=== PATIENT | female | born 1975 ===

== ENCOUNTER 2017-09-20 11:27 | Emergency (ER) | payer MEDICAID ==
[2017-09-20 11:36] VITALS: BP 113/73; PULSE 67; RESP 21; TEMP 99.3; O2SAT 100
--- NOTE | 2017-09-20 12:10 | ED PDOC ---
HPI: CCC, URI, Sore Throat Time Seen by Provider: 09/20/17 12:02 Chief Complaint (Nursing): ENT Problem Chief Complaint (Provider): Ear pain, sore throat x 4 days History Per: Patient History/Exam Limitations: no limitations Onset/Duration Of Symptoms: Days Current Symptoms Are (Timing): Still Present Location Of Pain: Ear(s), Throat Sick Contacts (Context): None Associated Symptoms: Sore Throat, Myalgias, Nasal Congestion. denies: Fever, Chills, Cough, Sputum Additional Complaint(s): Pt states she does not have a thermometer. Past Medical History Reviewed: Historical Data, Nursing Documentation, Vital Signs Vital Signs: Last Vital Signs Temp 99.3 F 09/20/17 11:35 Pulse 67 09/20/17 11:35 Resp 21 09/20/17 11:35 BP 113/73 09/20/17 11:35 Pulse Ox 100 09/20/17 11:35 - Medical History PMH: No Chronic Diseases - Surgical History Surgical History: No Surg Hx - Family History Family History: States: No Known Family Hx - Home Medications Home Medications: Ambulatory Orders Medication Instructions Recorded Azithromycin [Zithromax] 250 mg PO DAILY #6 tab 09/20/17 Guaifen/Phenyleph/Acetaminophn 1 tab PO BID #14 tab 09/20/17 [Mucinex Fast-Max Cold & Sinus 325 mg-200 mg-5] - Allergies Allergies/Adverse Reactions: Allergies Allergy/AdvReac Type Severity Reaction Status Date / Time Penicillins Allergy RASH Verified 09/20/17 11:49 Review of Systems ROS Statement: Except As Marked, All Systems Reviewed And Found Negative Constitutional: Positive for: Sweats. Negative for: Fever, Chills ENT: Positive for: Ear Pain, Throat Pain Cardiovascular: Negative for: Chest Pain, Palpitations Respiratory: Negative for: Cough, Shortness of Breath Physical Exam - Reviewed Nursing Documentation Reviewed: Yes Vital Signs Reviewed: Yes - Physical Exam Appears: Positive for: Well, Non-toxic, No Acute Distress Head Exam: Positive for: ATRAUMATIC, NORMAL INSPECTION, NORMOCEPHALIC Skin: Positive for: Normal Color, Warm, DRY Eye Exam: Positive for: Normal appearance ENT: Positive for: Normal ENT Inspection, Pharynx Is, TM Is/Are Neck: Positive for: Normal, Painless ROM Cardiovascular/Chest: Positive for: Regular Rate, Rhythm Respiratory: Positive for: CNT, Normal Breath Sounds Back: Positive for: Normal Inspection Extremity: Positive for: Normal ROM Neurologic/Psych: Positive for: Alert, Oriented - ECG O2 Sat by Pulse Oximetry: 100 Disposition - Clinical Impression Clinical Impression: URI (upper respiratory infection) - Patient ED Disposition Is Patient to be Admitted: No Counseled Patient/Family Regarding: Diagnosis, Need For Followup, Rx Given - Disposition Disposition: Routine/Home Disposition Time: 12:08 Condition: STABLE Prescriptions: Azithromycin [Zithromax] 250 mg PO DAILY #6 tab Guaifen/Phenyleph/Acetaminophn [Mucinex Fast-Max Cold & Sinus 325 mg-200 mg-5] 1 tab PO BID #14 tab Instructions: Bacterial Upper Respiratory Infection, Adult Forms: [facility] ([place])
== END 2017-09-20 12:17 | disposition home or self-care (01) ==
LOC: H.ER 11:27
DX: J06.9 Acute upper respiratory infection, unspecified (principal); Z88.0 Allergy status to penicillin

== ENCOUNTER 2017-12-18 05:36 | Inpatient (IN) | payer MEDICAID ==
--- NOTE | 2017-12-18 06:36 | ED PDOC ---
HPI: Psych/Substance Abuse Time Seen by Provider: 12/18/17 05:45 Chief Complaint (Nursing): Psychiatric Evaluation History Per: Patient History/Exam Limitations: no limitations Onset/Duration Of Symptoms: Hrs Current Symptoms Are (Timing): Still Present Modifying Factor(s): None Additional Complaint(s): Hx of schizophrenia on rispderal presenting with auditory hallucinations. States that she was staying in a fpc and was hearing voices, thought that it was related to the stress of the fpc, states that she then left the fpc and [place] the [place]. States that she still heard the voices even in the park. States they are non-persecutory and sometimes she states the voices tell her to pray. Denies suicidal or homicidal ideation. No other complaints. Past Medical History Reviewed: Historical Data, Nursing Documentation, Vital Signs Vital Signs: Last Vital Signs Temp 98.2 F 12/18/17 06:14 Pulse 76 12/18/17 06:14 Resp 16 12/18/17 06:14 BP 120/71 12/18/17 06:14 Pulse Ox 99 12/18/17 06:14 - Medical History PMH: Depression - Surgical History Surgical History: Cholecystectomy - Family History Family History: States: Unknown Family Hx - Home Medications Home Medications: Ambulatory Orders Medication Instructions Recorded Azithromycin [Zithromax] 250 mg PO DAILY #6 tab 09/20/17 Guaifen/Phenyleph/Acetaminophn 1 tab PO BID #14 tab 09/20/17 [Mucinex Fast-Max Cold & Sinus 325 mg-200 mg-5] - Allergies Allergies/Adverse Reactions: Allergies Allergy/AdvReac Type Severity Reaction Status Date / Time Penicillins Allergy RASH Verified 09/20/17 11:49 Review of Systems ROS Statement: Except As Marked, All Systems Reviewed And Found Negative Psych: Positive for: Psychosis Physical Exam - Reviewed Nursing Documentation Reviewed: Yes Vital Signs Reviewed: Yes - Physical Exam Appears: Positive for: Well, Non-toxic, No Acute Distress Head Exam: Positive for: ATRAUMATIC, NORMAL INSPECTION, NORMOCEPHALIC Skin: Positive for: Normal Color, Warm, DRY Eye Exam: Positive for: EOMI, Normal appearance, PERRL ENT: Positive for: Normal ENT Inspection Neck: Positive for: Normal, Painless ROM Cardiovascular/Chest: Positive for: Regular Rate, Rhythm Respiratory: Positive for: CNT, Normal Breath Sounds Gastrointestinal/Abdominal: Positive for: Normal Exam, Soft Back: Positive for: Normal Inspection Extremity: Positive for: Normal ROM Neurologic/Psych: Positive for: Alert, branch credit counselor II-XII, Oriented, Mood/Affect (Strange affect). Negative for: Motor/Sensory Deficits - ECG O2 Sat by Pulse Oximetry: 99 Pulse Ox Interpretation: Normal Medical Decision Making Medical Decision MakinAM Hx of schizophrenia presenting with auditory hallucinations --Patient well appearing, calm, cooperative --Will get labs for med clearance --Will require crisis eval 700AM --Will endorse to Dr. Valdez pending crisis eval Disposition - Clinical Impression Clinical Impression: Schizophrenia - Patient ED Disposition Is Patient to be Admitted: Transfer of Care - Disposition Disposition: Transfer of Care Disposition Time: 07:00 Condition: STABLE Patient Signed Over To: Tabitha Valdez Handoff Comments: pending crisis eval
[2017-12-18 06:55] LABS: BASO # 0.1 K/uL (0.0-0.2); BASO % 0.9 % (0.0-2.0); EOS # 0.1 K/uL (0.0-0.7); EOS % 1.2 % (0.0-4.0); LYMPH # 1.8 K/uL (1.0-4.3); LYMPH % 19.3 % (20.0-40.0); MEAN CORPUSCULAR HGB CONC 32.5 g/dL (33.0-37.0); MEAN PLATELET VOLUME 7.2 fl (7.2-11.7); MONO # 0.6 K/uL (0.0-0.8); MONO % 6.3 % (0.0-10.0); NEUT # 6.9 K/uL (1.8-7.0); NEUT % 72.3 % (50.0-75.0); RBC 4.99 Mil/uL (3.80-5.20); RED CELL DISTRIBUTION WIDTH 15.3 % (11.5-14.5); WHITE BLOOD COUNT 9.5 K/uL (4.8-10.8)
[2017-12-18 07:03] LABS: BLOOD UREA NITROGEN 10 mg/dl (7-17); GFR NON-AFRICAN AMERICAN > 60
[2017-12-18 07:08] LABS: SQUAMOUS EPITHIAL 1 /hpf (0-5); URINE BACTERIA RARE (<OCC); URINE BILIRUBIN NEGATIVE (NEGATIVE); URINE BLOOD NEGATIVE (NEGATIVE); URINE CLARITY SLIGHTY-CLOUDY (Clear); URINE COLOR YELLOW (YELLOW); URINE GLUCOSE (UA) NEG (Normal); URINE LEUKOCYTE ESTERASE MOD Leu/uL (Negative); URINE PROTEIN NEGATIVE (NEGATIVE); URINE UROBILINOGEN 0.2-1.0 mg/dL (0.2-1.0)
[2017-12-18 07:09] LABS: ACETAMINOPHEN < 10.0 ug/ml (10.0-30.0); SALICYLATE < 1.0 mg/dl
[2017-12-18 07:10] LABS: BARBITURATES, UR NEGATIVE (NEGATIVE); BENZODIAZEPINES, UR NEGATIVE (NEGATIVE); OPIATES, UR NEGATIVE (NEGATIVE); PHENCYCLIDINE, UR NEGATIVE (NEGATIVE)
--- NOTE | 2017-12-18 07:23 | ED PDOC ---
- Laboratory Results Result Diagrams: 12/18/17 06:45 12/18/17 06:45 - ECG O2 Sat by Pulse Oximetry: 99 Medical Decision Making Medical Decision Makin:00 -Patient endorsed to provider by Dr. Almodovar, pending crisis evaluation. Patient is a known schizophrenic, hearing voices that are non threatening. Spoke with [employer]way worker who will get in contact with psychiatrist. -Labs are within normal limits. No medical attention needed. 11:53 am -Pt seen by psychiatrist and to be admitted to adult psychiatry under Dr. Porter. Disposition - Clinical Impression Clinical Impression: Schizophrenia - POA Present On Arrival: None - Disposition Disposition: Admitted as In-Patient Disposition Time: 11:53 Condition: STABLE
[2017-12-18] MEDS ORDERED: Magnesium Hydroxide Susp 30 ml UD PO PRN (14:32)
[2017-12-18] MEDS ORDERED: Alum-Mag Hydrox-Simethicone Susp (30 mL) PO PRN (14:32)
[2017-12-18] MEDS ORDERED: DiphenhydrAMINE 50 mg/ml Inj IM PRN (14:32)
--- NOTE | 2017-12-18 14:54 | PCM.PSYCH ---
Initial Psychiatric Evaluation - Initial Psychiatric Evaluation Type of Admission: Voluntary Legal Status: Capacity Chief Complaint (in patient's own words): i AM TIRED OF THE VOICES AND I DO NOT HAVE MEDICINE Patient's Reaction to Hospitalization: pt requested help History of Present Illness and Precipitating Events: pt is a 42 ys old female reported has been diagnosed with schizophrenia two years ago, since then had about five psychiatric hospitalizations, pt has often been non compliant with medications or follow up , p[[t related that to lack of insurance and financial difficulties, she stated she has been homeless and moving between different shelters, pt indicated that she has lost touch with her and her three children has been increasingly depressed for past few weeks due to her living situation and for past week she started experiencing auditory hallucinations at times they are the holy spirit telling her to be good and other times putting her down, pt has been feeling increasingly distressed because of the auditory hallucinations, started having passive suicidal ideation, came to ER seeking help collateral information CW received a call back from Mr. Elena stating that he hear message and he would like to know where his spouse had been, and where she is presently is at this time. As per Mr. Elena patient left him a few months ago and never returned. She was living with him and his mother. Current Medications: Active Medications Generic Name Dose Route Start Last Admin Trade Name Fordq PRN Reason Stop Dose Admin Acetaminophen 650 mg 12/18/17 14:32 Tylenol 325mg Tab PO Q4 PRN Pain, moderate (4-7) Al Hydrox/Mg Hydrox/Simethicone 30 ml 12/18/17 14:32 Maalox Plus 30 Ml PO Q4 PRN Dyspepsia Benztropine Mesylate 0.5 mg 12/18/17 22:00 Cogentin PO HS BEN Diphenhydramine HCl 50 mg 12/18/17 14:32 Benadryl IM Q6 PRN Extrapyramidal S/S Unable PO Diphenhydramine HCl 50 mg 12/18/17 14:32 Benadryl PO Q6 PRN Extrapyramidal Symptoms Haloperidol 5 mg 12/18/17 14:32 Haldol PO Q6 PRN Agitation Haloperidol Lactate 5 mg 12/18/17 14:32 Haldol IM Q6 PRN Agitation, Unable to Take PO Lorazepam 1 mg 12/18/17 14:32 Ativan PO TID PRN Anxiety/Agitation Magnesium Hydroxide 30 ml 12/18/17 14:32 Milk Of Magnesia PO HS PRN Constipation Risperidone 2 mg 12/18/17 22:00 Risperdal M-Tab PO HS BEN Sertraline HCl 25 mg 12/19/17 09:00 Zoloft PO DAILY BEN Trazodone HCl 50 mg 12/18/17 14:40 Desyrel PO HS PRN Insomnia Past Psychiatric History - Past Psychiatric History Explanation of prior treatment: about five inpatient hospitalizations past two years, history of non compliance History of Abuse: denied History of ETOH/Drug Use: denied History of Family Illness: denied Pertinent Medical Hx (Current Medical&Sleep Prob, Allergies): Allergies Allergy/AdvReac Type Severity Reaction Status Date / Time Penicillins Allergy RASH Verified 09/20/17 11:49 Risperidone [Risperdal] 2 mg PO HS 12/18/17 Sertraline [Zoloft] 50 mg PO DAILY 12/18/17 Mental Status Examination - Personal Presentation Personal Presentation: Looks older than stated age Additional comments: unkempt - Affect Affect: Constricted - Motor Activity Motor Activity: Psychomotor Retardation - Reliability in Providing Information Reliability in Providing Information: Poor, due to alteration in thoughts, Poor, due to altered mood - Speech Speech: Tangential - Mood Mood: Depressed, Anxious - Formal Thought Process Formal Thought Process: Circumstantial Additional comments: pt reported non command auditory hallucinations - Hallucinations/Delusions Hallucinations: Auditory - Obsessions/Compulsions Obsessions: No Compulsions: No - Cognitive Functions Orientation: Person, Place, Situation Sensorium: Alert Attention/Concentration: Easily distracted Abstract Thinking: [place] Judgement: Imparied, as evidence by: Poor judgement, Imparied, as evidence by: Lack of insight into illness - Risk Risk: Diminished functioning - Strength & Assets Inventory Strength & Assets Inventory: Life experience - Limitations Additional comments: poor compliance DSM 5 DX - DSM 5 DSM 5 Diagnosis: schizophrenia - Recommended/Plan of Treatment Treatment Recommendations and Plan of Treatment: pt will be started on zoloft 25mg, risperidone 2mg qhs and cogentin 0.5mg qhs trazodne 50mg qhs for insomnia social sevices will attempt to contact family CBT group and supportive therapy internal medicine consult disposition planning Prognosis: guarded
--- NOTE | 2017-12-18 15:54 | PCM.BM ---
Addendum entered and electronically signed by Елена Reyna MSW 12/27/17 16:12: Treatment Plan Review - Problem Schizophrenia Spectrum Time Initiated: 11:32 - Discharge / Continuing Care Discharge to:: Home, With Family Behavioral Health Services: Outpatient therapy (Patient reports significant improvement in sxs of depression since admission. Pt. denies current AH/VH although pt. appears internally preoccupied at times. Speech and thought process are more spontaneous than upon admission. Pt. remains socially withdrawn but is significantly more visible on 3NP and expressed enjoying being in the company of peers. Affect is brighter. No harmful behaviors noted. ) Original Note: <Trisha Harrell - Last Filed: 12/18/17 15:52> Treatment Plan Problems - Problems identified on initial assessmt HOPELESSNESS/HELPLESSNESS Date Initiated: 12/18/17 Assessment reference: NA Status: Active Treatment assets and liabiliti Patient Assests: adapts well, cooperative, self-reliant, ADL independent Patient Liabilities: live alone, financial problems, poor support system - Milieu Protocol Maintain good personal hygiene: daily Encourage regular showers, daily Remind patient to perform daily oral care, daily Assist patient to perform ADL's Conduct patient checks and document Observation sheet: Q15 minutes Maintain personal safety: every shift Educate patient to report safety concerns to staff, every shift Monitor environment for contraband/sharps Medication safety: Monitor for expected outcome, potential side effects: every shift, Assess barriers to learning: every shift, Assess readiness for medication education: every shift Milieu Narrative: pt will be started on zoloft 25mg, risperidone 2mg qhs and cogentin 0.5mg qhs trazodne 50mg qhs for insomnia social sevices will attempt to contact family CBT group and supportive therapy internal medicine consult disposition planning Discharge/Continuing Care - Treatment Team Participation Patient/Family/SO Statement: pt will be started on zoloft 25mg, risperidone 2mg qhs and cogentin 0.5mg qhs trazodne 50mg qhs for insomnia social sevices will attempt to contact family CBT group and supportive therapy internal medicine consult disposition planning <Елена Reyna - Last Filed: 12/20/17 15:33> Family Contact Family involvement: Patient does not wish Family/SO involvement Family contact name: Ramesh()([phone])/Ju(cousin)([phone]) Family contact comment: Patient hesitant to provide marketing underwriter with consent to contact family at this time. [employer] Launch Commander to meet with patient on 12/21 to attempt to obtain necessary consent to determain level of familys involvement and ways in which family can provide support through-out discharge planning and upon d/c. - Goals for Treatment Patient goals for treatment: Patient to continue stabilization on 3NP through medication management and group/supportive therapy to improve psychotic sxs (auditory hallucinations/ yarsani preoccupation) and alleviate sxs of depression. Patient to be encouraged to attend groups regularly to promote self- awareness, compliance, and improve insight, organization of thoughts, coping skills and self-esteem. Patient to be provided with referral for appropriate level of aftercare to reduce risk of future hospitalizations and ensure safety in the community. Discharge/Continuing Care - Education Needs Education Needs: Patient Medication, Patient Diagnosis/Disease Process, Patient Coping Skills, Patient Community resources, Patient Aftercare Safety Plan - Discharge Discharge Criteria: Tolerates medication w/o severe side effects, Normal sleep pattern, Reduction of target symptoms (AH/yarsani preoccupations/disorganization) Discharge to:: With Family (marketing underwriter to attempt to contact family and collect collateral regarding pts current living situation), Group Home - Treatment Team Participation Patient/Family/SO Statement: 12/20/17 15:38 Pt. was invited to attent tx team this morning to discuss progress on 3NP and tx goals. Pt. attended tx team with limited participation/engagement. Pt. presented as disorganized and internally preoccupied. Thoughts slightly impoverished. Speech: soft, underproductive and somewhat delayed. Pt. presents as a poor historian and requires moderate engagement to provide sufficient collateral regarding family relations/social hx. Pt. reported continued AH but with slight improvement since admission. Pt unable to elaborate. Pt. reported fair sleep. Pt. denies SI/HI and is able to contract for safety on 3NP. Patient made aware of staff availability. Patient expressed feeling safe on 3NP. Pt. reported wanting to contact children (currently in foster care) upon discharge to find out "how their education is going." 12/20/17 15:41 Discussed with Family/SO: No Was Patient/Family/SO present at Treatment Team Meeting: Yes <Kei Porter - Last Filed: 12/21/17 12:22> Treatment Plan Problems - Problems identified on initial assessmt HOPELESSNESS/HELPLESSNESS Date Initiated: 12/18/17 Assessment reference: NA Status: Active Problem 1 Date Initiated: 12/18/17 Assessment reference: NA Status: Active Schizophrenia Spectrum Date Initiated: 12/21/17 Time Initiated: 11:32 Assessment reference: NA Status: Active - Diagnosis (1) Depression Status: Acute Interventions: 12/21/17 12:22 psychotherapy, pharmacotherapy
--- NOTE | 2017-12-18 16:36 | CP.PCM.CON ---
History of Present Illness - History of Present Illness History of Present Illness: 42 yo female with no significant PMH aside from schizophrenia admitted to psyche unit because of depression. Review of Systems - Review of Systems All systems: reviewed and no additional remarkable complaints except (aside from those mentioned above, 12 point system review were negative by me) Past Patient History - Infectious Disease Hx of Infectious Diseases: None - Tetanus Immunizations Tetanus Immunization: Unknown - Past Medical History & Family History Past Medical History?: No Past Family History: Reviewed and not pertinent - Past Social History Smoking Status: Never Smoked Chewing Tobacco Use: No Cigar Use: No Alcohol: None Drugs: Denies - CARDIAC Hx Cardiac Disorders: No Hx Hypertension: No - PULMONARY Hx Respiratory Disorders: No Hx Tuberculosis: No - NEUROLOGICAL Hx Neurological Disorder: No HX Cerebrovascular Accident: No Hx Seizures: No - HEENT Hx HEENT Problems: No - RENAL Hx Chronic Kidney Disease: No - ENDOCRINE/METABOLIC Hx Endocrine Disorders: No - HEMATOLOGICAL/ONCOLOGICAL Hx Blood Disorders: No Hx Cancer: No Hx Human Immunodeficiency Virus (HIV): No - INTEGUMENTARY Hx Dermatological Problems: No - MUSCULOSKELETAL/RHEUMATOLOGICAL Hx Musculoskeletal Disorders: No - GASTROINTESTINAL Hx Gastrointestinal Disorders: No - GENITOURINARY/GYNECOLOGICAL Hx Genitourinary Disorders: No Hx Sexually Transmitted Disorders: No - PSYCHIATRIC Hx Depression: Yes Hx Physical Abuse: No Hx Sexual Abuse: No Hx Substance Use: No - SURGICAL HISTORY Hx Cholecystectomy: Yes - ANESTHESIA Hx Anesthesia: Yes Meds Allergies/Adverse Reactions: Allergies Allergy/AdvReac Type Severity Reaction Status Date / Time Penicillins Allergy RASH Verified 09/20/17 11:49 - Medications Medications: Current Medications Acetaminophen (Tylenol 325mg Tab) 650 mg PO Q4 PRN PRN Reason: Pain, moderate (4-7) Al Hydrox/Mg Hydrox/Simethicone (Maalox Plus 30 Ml) 30 ml PO Q4 PRN PRN Reason: Dyspepsia Benztropine Mesylate (Cogentin) 0.5 mg PO HS BEN Diphenhydramine HCl (Benadryl) 50 mg IM Q6 PRN PRN Reason: Extrapyramidal S/S Unable PO Diphenhydramine HCl (Benadryl) 50 mg PO Q6 PRN PRN Reason: Extrapyramidal Symptoms Haloperidol (Haldol) 5 mg PO Q6 PRN PRN Reason: Agitation Haloperidol Lactate (Haldol) 5 mg IM Q6 PRN PRN Reason: Agitation, Unable to Take PO Lorazepam (Ativan) 1 mg PO TID PRN PRN Reason: Anxiety/Agitation Magnesium Hydroxide (Milk Of Magnesia) 30 ml PO HS PRN PRN Reason: Constipation Risperidone (Risperdal M-Tab) 2 mg PO HS BEN Sertraline HCl (Zoloft) 25 mg PO DAILY BEN Trazodone HCl (Desyrel) 50 mg PO HS PRN PRN Reason: Insomnia Physical Exam - Constitutional Appears: No Acute Distress - Head Exam Head Exam: ATRAUMATIC - Eye Exam Eye Exam: absent: Scleral icterus - ENT Exam ENT Exam: Mucous Membranes Moist - Neck Exam Neck exam: Negative for: Meningismus - Respiratory Exam Respiratory Exam: absent: Rales, Rhonchi, Wheezes, Respiratory Distress - Cardiovascular Exam Cardiovascular Exam: REGULAR RHYTHM, +S1, +S2 - GI/Abdominal Exam GI & Abdominal Exam: Soft. absent: Tenderness - Rectal Exam Rectal Exam: Deferred - Extremities Exam Extremities exam: Negative for: calf tenderness, pedal edema - Back Exam Back exam: NORMAL INSPECTION - Neurological Exam Neurological exam: Alert, Oriented x3 - Psychiatric Exam Psychiatric exam: Normal Affect - Skin Skin Exam: Dry, Intact Results - Vital Signs Recent Vital Signs: Last Vital Signs Temp 97.0 F L 12/18/17 16:14 Pulse 71 12/18/17 16:14 Resp 18 12/18/17 16:14 BP 132/79 12/18/17 16:14 Pulse Ox 99 12/18/17 07:23 - Labs Result Diagrams: 12/18/17 06:45 12/18/17 06:45 Labs: Laboratory Results - last 24 hr 12/18/17 12/18/17 12/18/17 06:45 06:45 06:45 WBC 9.5 RBC 4.99 Hgb 13.0 Hct 39.9 MCV 80.0 L MCH 26.0 L MCHC 32.5 L RDW 15.3 H Plt Count 399 MPV 7.2 Neut % (Auto) 72.3 Lymph % (Auto) 19.3 L [place] % (Auto) 6.3 Eos % (Auto) 1.2 Baso % (Auto) 0.9 Neut # (Auto) 6.9 Lymph # (Auto) 1.8 [place] # (Auto) 0.6 Eos # (Auto) 0.1 Baso # (Auto) 0.1 Sodium 142 Potassium 4.2 Chloride 109 H Carbon Dioxide 23 Anion Gap 14 BUN 10 Creatinine 0.4 L Est GFR ( Amer) > 60 Est GFR (Non-Af Amer) > 60 Random Glucose 87 Calcium 9.0 Urine Color Urine Clarity Urine pH Ur Specific [place] Urine Protein Urine Glucose (UA) Urine Ketones Urine Blood Urine Nitrate Urine Bilirubin Urine Urobilinogen Ur Leukocyte Esterase Urine RBC (Auto) Urine Microscopic WBC Ur Squamous Epith Cells Urine Bacteria Salicylates < 1.0 Urine Opiates Screen Urine Methadone Screen Acetaminophen < 10.0 L Ur Barbiturates Screen Ur Phencyclidine Scrn Ur Amphetamines Screen U Benzodiazepines Scrn U Oth Cocaine Metabols U Cannabinoids Screen Alcohol, Quantitative < 10 12/18/17 12/18/17 06:45 06:45 WBC RBC Hgb Hct MCV MCH MCHC RDW Plt Count MPV Neut % (Auto) Lymph % (Auto) [place] % (Auto) Eos % (Auto) Baso % (Auto) Neut # (Auto) Lymph # (Auto) [place] # (Auto) Eos # (Auto) Baso # (Auto) Sodium Potassium Chloride Carbon Dioxide Anion Gap BUN Creatinine Est GFR ( Amer) Est GFR (Non-Af Amer) Random Glucose Calcium Urine Color Yellow Urine Clarity Slighty-cloudy Urine pH 6.0 Ur Specific [place] 1.019 Urine Protein Negative Urine Glucose (UA) Neg Urine Ketones Negative Urine Blood Negative Urine Nitrate Negative Urine Bilirubin Negative Urine Urobilinogen 0.2-1.0 Ur Leukocyte Esterase Mod Urine RBC (Auto) 2 Urine Microscopic WBC 1 Ur Squamous Epith Cells 1 Urine Bacteria Rare Salicylates Urine Opiates Screen Negative Urine Methadone Screen Negative Acetaminophen Ur Barbiturates Screen Negative Ur Phencyclidine Scrn Negative Ur Amphetamines Screen Negative U Benzodiazepines Scrn Negative U Oth Cocaine Metabols Negative U Cannabinoids Screen Negative Alcohol, Quantitative Assessment & Plan (1) Depression Status: Acute Comment: psyche is managing
[2017-12-18] MEDS: Risperidone M TAB 2 MG PO SCH (21:29)
[2017-12-19 09:03] LABS: T4 10.5 ug/dl (5.5-11.0)
--- NOTE | 2017-12-19 17:21 | PCM.PYCHPN ---
Psychiatric Progress Note - Psychiatric Progress Note Patient seen today, length of contact: pt evaluated discussed with team chart reviewed Patient Chief Complaint: I am sleeping better Problems Identified/Issues Discussed: pt evaluated, presenting with disorganized speech and thought process, guarded and evasive unable to explain why DYSEBASTIÁN took her children, having negative symptoms with poverty of thought content , paucity, religous preoccupation, continues to report non comand auditory hallucinations telling her to go to [facility] denied suicidal or homicidal ideation denied side effects of medications Medical Problems: about five inpatient hospitalizations past two years, history of non compliance DSM 5 Symptoms Update: schizophrenia disorganized type Medication Change: No Medical Record Reviewed: Yes Mental Status Examination - Cognitive Function Orientation: Person, Place, Situation Attention: Poor Concentration: Poor Association: Loose Fund of Knowledge: Poor Decription of patient's judgement and insights: poor insight and judgment - Mood Mood: Depressed, Anxious - Affect Affect: Constricted - Speech Speech: Soft, Pressured - Formal Thought Process Formal Thought Process: Hallucinations, Delusions, Paranoia, Loosening of associations, Circumstantial - Suicidal Ideation Suicidal Ideation: No - Homicidal Ideation Homicidal Ideation: No Goal/Treatment Plan - Goal/Treatment Plan Need for Continued Stay: Severe depression anxiety, Discharge may exacerbated symptoms, Failed transitioning, Severe functional impairment Progress Toward Problem(s) and Goals/Treatment Plan: zoloft 25mg, risperidone 2mg qhs and cogentin 0.5mg qhs trazodne 50mg qhs for insomnia social sevices will attempt to contact family CBT group and supportive therapy internal medicine consult disposition planning
[2017-12-19] MEDS: Risperidone M TAB 2 MG PO SCH (21:16)
--- NOTE | 2017-12-20 15:06 | PCM.PYCHPN ---
Psychiatric Progress Note - Psychiatric Progress Note Patient seen today, length of contact: pt evaluated discussed with team chart reviewed Patient Chief Complaint: the voices are less Problems Identified/Issues Discussed: pt evaluated with treatment team, continues to present with disorganized speech and thought process, reported partial decrease in the auditory hallucinations,, continues to be religiously preoccupied, denied suicidal or homicidal ideation Medical Problems: about five inpatient hospitalizations past two years, history of non compliance DSM 5 Symptoms Update: schizophrenia disorganized type Medication Change: No Medical Record Reviewed: Yes Mental Status Examination - Cognitive Function Orientation: Person, Place, Situation Attention: Poor Concentration: Poor Association: Loose Fund of Knowledge: Poor Decription of patient's judgement and insights: poor insight and judgment - Mood Mood: Depressed, Anxious - Affect Affect: Constricted - Speech Speech: Soft, Pressured - Formal Thought Process Formal Thought Process: Hallucinations, Delusions, Paranoia, Loosening of associations, Circumstantial - Suicidal Ideation Suicidal Ideation: No - Homicidal Ideation Homicidal Ideation: No Goal/Treatment Plan - Goal/Treatment Plan Need for Continued Stay: Severe depression anxiety, Discharge may exacerbated symptoms, Failed transitioning, Severe functional impairment Progress Toward Problem(s) and Goals/Treatment Plan: zoloft 25mg,increase risperidone 3mg qhs and cogentin 0.5mg qhs trazodne 50mg qhs for insomnia social sevices will attempt to contact family CBT group and supportive therapy internal medicine consult disposition planning
--- NOTE | 2017-12-21 11:32 | PCM.BM ---
Treatment Plan Problems - Problems identified on initial assessmt Problem 1 Date Initiated: 12/18/17 Assessment reference: NA Status: Active HOPELESSNESS/HELPLESSNESS Date Initiated: 12/18/17 Assessment reference: NA Status: Active Schizophrenia Spectrum Date Initiated: 12/21/17 Time Initiated: 11:32 Assessment reference: NA Status: Active Treatment assets and liabiliti Patient Assests: adapts well, cooperative, self-reliant, ADL independent Patient Liabilities: live alone, financial problems, poor support system - Milieu Protocol Maintain good personal hygiene: daily Encourage regular showers, daily Remind patient to perform daily oral care, daily Assist patient to perform ADL's Conduct patient checks and document Observation sheet: Q15 minutes Maintain personal safety: every shift Educate patient to report safety concerns to staff, every shift Monitor environment for contraband/sharps Medication safety: Monitor for expected outcome, potential side effects: every shift, Assess barriers to learning: every shift, Assess readiness for medication education: every shift Milieu Narrative: zoloft 25mg,increase risperidone 3mg qhs and cogentin 0.5mg qhs trazodne 50mg qhs for insomnia social sevices will attempt to contact family CBT group and supportive therapy internal medicine consult disposition planning Family Contact Family involvement: Patient does not wish Family/SO involvement Family contact name: Ramesh()([phone])/Ju(cousin)([phone]) Family contact comment: Patient hesitant to provide contract technical writer with consent to contact family at this time. Sales Operations Specialist to meet with patient on 12/21 to attempt to obtain necessary consent to determain level of familys involvement and ways in which family can provide support through-out discharge planning and upon d/c. - Goals for Treatment Patient goals for treatment: Patient to continue stabilization on 3NP through medication management and group/supportive therapy to improve psychotic sxs (auditory hallucinations/ gnosticist preoccupation) and alleviate sxs of depression. Patient to be encouraged to attend groups regularly to promote self- awareness, compliance, and improve insight, organization of thoughts, coping skills and self-esteem. Patient to be provided with referral for appropriate level of aftercare to reduce risk of future hospitalizations and ensure safety in the community. Discharge/Continuing Care - Education Needs Education Needs: Patient Medication, Patient Diagnosis/Disease Process, Patient Coping Skills, Patient Community resources, Patient Aftercare Safety Plan - Discharge Discharge Criteria: Tolerates medication w/o severe side effects, Normal sleep pattern, Reduction of target symptoms (AH/gnosticist preoccupations/disorganization) Discharge to:: With Family (contract technical writer to attempt to contact family and collect collateral regarding pts current living situation), [facility] - Treatment Team Participation Patient/Family/SO Statement: zoloft 25mg,increase risperidone 3mg qhs and cogentin 0.5mg qhs trazodne 50mg qhs for insomnia social sevices will attempt to contact family CBT group and supportive therapy internal medicine consult disposition planning Discussed with Family/SO: No Was Patient/Family/SO present at Treatment Team Meeting: Yes
--- NOTE | 2017-12-21 12:28 | PCM.PYCHPN ---
Psychiatric Progress Note - Psychiatric Progress Note Patient seen today, length of contact: pt evaluated discussed with team chart reviewed Patient Chief Complaint: I feel better with the medicine and the voices are less Problems Identified/Issues Discussed: pt evaluated , seen in day room, more interactive with staff and other peers, attending more to her personal hygiene, participating in groups, reported feeling less depressed, rated the auditory hallucinations 2/10, non command type, no reported side effects of medications, denied any current thoughts of self harm, improved sleep and appetite Medical Problems: about five inpatient hospitalizations past two years, history of non compliance DSM 5 Symptoms Update: schizophrenia undifferentiated type Medication Change: No Medical Record Reviewed: Yes Mental Status Examination - Cognitive Function Orientation: Person, Place, Situation Attention: WNL Concentration: Poor Association: WNL Fund of Knowledge: Poor Decription of patient's judgement and insights: poor insight and judgment - Mood Mood: Anxious - Affect Affect: Constricted - Speech Speech: Soft - Formal Thought Process Formal Thought Process: Hallucinations, Circumstantial - Suicidal Ideation Suicidal Ideation: No - Homicidal Ideation Homicidal Ideation: No Goal/Treatment Plan - Goal/Treatment Plan Need for Continued Stay: Severe depression anxiety, Discharge may exacerbated symptoms, Failed transitioning, Severe functional impairment Progress Toward Problem(s) and Goals/Treatment Plan: zoloft 25mg, risperidone 3mg qhs and cogentin 0.5mg qhs trazodne 50mg qhs for insomnia social sevices will attempt to contact family for collateral information and disposition CBT group and supportive therapy
--- NOTE | 2017-12-22 12:29 | PCM.PYCHPN ---
Psychiatric Progress Note - Psychiatric Progress Note Patient seen today, length of contact: pt evaluated discussed with team chart reviewed Patient Chief Complaint: I feel better I want to be with my family Problems Identified/Issues Discussed: pt evaluated , more kempt, speech more productive, thought process less disorganized , continues to have limited insight into illness seen in day room, more interactive with staff and other peers, participating in groups, reported feeling less depressed, rated the auditory hallucinations 2/10, non command type, no reported side effects of medications, denied any current thoughts of self harm, improved sleep and appetite Medical Problems: about five inpatient hospitalizations past two years, history of non compliance DSM 5 Symptoms Update: schizophrenia undifferentiated type Medication Change: No Medical Record Reviewed: Yes Mental Status Examination - Cognitive Function Orientation: Person, Place, Situation Attention: WNL Concentration: Poor Association: WNL Fund of Knowledge: Poor Decription of patient's judgement and insights: poor insight and judgment - Mood Mood: Anxious - Affect Affect: Constricted - Speech Speech: Soft - Formal Thought Process Formal Thought Process: Hallucinations, Circumstantial - Suicidal Ideation Suicidal Ideation: No - Homicidal Ideation Homicidal Ideation: No Goal/Treatment Plan - Goal/Treatment Plan Need for Continued Stay: Severe depression anxiety, Discharge may exacerbated symptoms, Failed transitioning, Severe functional impairment Progress Toward Problem(s) and Goals/Treatment Plan: zoloft 25mg, risperidone 3mg qhs and cogentin 0.5mg qhs trazodne 50mg qhs for insomnia social sevices will attempt to contact family for collateral information and disposition CBT group and supportive therapy Estimated Date of D/C: 12/26/17
[2017-12-23 10:54] VITALS: O2SAT 99
--- NOTE | 2017-12-23 17:29 | PCM.PYCHPN ---
Psychiatric Progress Note - Psychiatric Progress Note Patient seen today, length of contact: pt evaluated discussed with team chart reviewed Patient Chief Complaint: was feeling nervous anxious Problems Identified/Issues Discussed: alteration in mood alteration in cognition Medical Problems: per chart Diagnostic Results: per psychiatry per medicine per nursing per social work per recreational therapy DSM 5 Symptoms Update: alteration in mood alteration in cognition Medication Change: No Medical Record Reviewed: Yes Consults ordered or reviewed: pt seen by hospitalist Mental Status Examination - Cognitive Function Orientation: Person, Place, Situation Attention: WNL Concentration: Poor Association: WNL Fund of Knowledge: Poor Decription of patient's judgement and insights: impaired - Mood Mood: Anxious - Affect Affect: Constricted - Speech Speech: Soft - Formal Thought Process Formal Thought Process: Hallucinations, Circumstantial - Homicidal Ideation Homicidal Ideation: No Goal/Treatment Plan - Goal/Treatment Plan Need for Continued Stay: Severe depression anxiety, Discharge may exacerbated symptoms, Failed transitioning, Severe functional impairment Progress Toward Problem(s) and Goals/Treatment Plan: inpt milieu adjust meds per clinical status on going assessment discharge planning in progress Estimated Date of D/C: 12/26/17 - Smoking Cessation Smoking Cessation Initiated: No Reason for not providing: pt defers
--- NOTE | 2017-12-24 19:33 | PCM.PYCHPN ---
Psychiatric Progress Note - Psychiatric Progress Note Patient seen today, length of contact: pt evaluated discussed with team chart reviewed Patient Chief Complaint: pt reports sleeping and eating well. taking rx as prescribed no side effects. staff report pt rx adherent. Problems Identified/Issues Discussed: alteration in mood alteration in cognition Medical Problems: per chart Diagnostic Results: per psychiatry per medicine per nursing per social work per recreational therapy DSM 5 Symptoms Update: improving mood Medication Change: No Medical Record Reviewed: Yes Consults ordered or reviewed: pt seen by hospitalist Mental Status Examination - Cognitive Function Orientation: Person, Place, Situation, Time Attention: WNL Concentration: Poor Association: WNL Fund of Knowledge: Poor Decription of patient's judgement and insights: impaired - Mood Mood: Anxious - Affect Affect: Constricted - Speech Speech: Soft - Formal Thought Process Formal Thought Process: Hallucinations, Circumstantial - Suicidal Ideation Suicidal Ideation: No - Homicidal Ideation Homicidal Ideation: No Goal/Treatment Plan - Goal/Treatment Plan Need for Continued Stay: Severe depression anxiety, Discharge may exacerbated symptoms, Failed transitioning, Severe functional impairment Progress Toward Problem(s) and Goals/Treatment Plan: inpt milieu adjust meds per clinical status on going assessment discharge planning in progress Estimated Date of D/C: 12/26/17 - Smoking Cessation Smoking Cessation Initiated: No Reason for not providing: pt defers
--- NOTE | 2017-12-25 15:16 | PCM.PYCHPN ---
Psychiatric Progress Note - Psychiatric Progress Note Patient seen today, length of contact: pt evaluated discussed with team chart reviewed Patient Chief Complaint: I am less depressed and the voices are only whispering Problems Identified/Issues Discussed: pt evaluated , presenting with brighter affect, reported feeling less depressed, thought process less disorganized, reported clearing off of the auditory hallucinations , concrete thought process, no reported side effects of medications denied any current thoughts of self harm, improved sleep and appetite Medical Problems: about five inpatient hospitalizations past two years, history of non compliance DSM 5 Symptoms Update: schizophrenia Medication Change: No Medical Record Reviewed: Yes Mental Status Examination - Cognitive Function Orientation: Person, Place, Situation, Time Attention: WNL Concentration: WNL Association: WNL Fund of Knowledge: Poor Decription of patient's judgement and insights: partial insight poor judgment - Mood Mood: Anxious - Affect Affect: Constricted - Speech Speech: Soft - Formal Thought Process Formal Thought Process: Circumstantial - Suicidal Ideation Suicidal Ideation: No - Homicidal Ideation Homicidal Ideation: No Goal/Treatment Plan - Goal/Treatment Plan Need for Continued Stay: Severe depression anxiety, Discharge may exacerbated symptoms, Failed transitioning, Severe functional impairment Progress Toward Problem(s) and Goals/Treatment Plan: zoloft 25mg, risperidone 3mg qhs and cogentin 0.5mg qhs trazodne 50mg qhs for insomnia social sevices will attempt to contact family for collateral information and disposition CBT group and supportive therapy Estimated Date of D/C: 12/26/17
--- NOTE | 2017-12-26 15:02 | PCM.PYCHPN ---
Psychiatric Progress Note - Psychiatric Progress Note Patient seen today, length of contact: pt evaluated discussed with team chart reviewed Patient Chief Complaint: I want to stay with my Problems Identified/Issues Discussed: pt evaluated ,denied changes in sleep or appetite, presenting with brighter affect, reported feeling less depressed, thought process less disorganized, reported clearing off of the auditory hallucinations , concrete thought process, no reported side effects of medications , planning to stay with on discharge denied any current thoughts of self harm, Medical Problems: about five inpatient hospitalizations past two years, history of non compliance DSM 5 Symptoms Update: schizophrenia undifferentiated type Medication Change: No Medical Record Reviewed: Yes Mental Status Examination - Cognitive Function Orientation: Person, Place, Situation, Time Attention: WNL Concentration: WNL Association: WNL Fund of Knowledge: Poor Decription of patient's judgement and insights: partial insight poor judgment - Mood Mood: Anxious - Affect Affect: Constricted - Speech Speech: Soft - Formal Thought Process Formal Thought Process: Circumstantial - Suicidal Ideation Suicidal Ideation: No - Homicidal Ideation Homicidal Ideation: No Goal/Treatment Plan - Goal/Treatment Plan Need for Continued Stay: Severe depression anxiety, Discharge may exacerbated symptoms, Failed transitioning, Severe functional impairment Progress Toward Problem(s) and Goals/Treatment Plan: zoloft 25mg, risperidone 3mg qhs and cogentin 0.5mg qhs trazodne 50mg qhs for insomnia social sevices will attempt to contact family for collateral information and disposition CBT group and supportive therapy Estimated Date of D/C: 12/29/17
--- NOTE | 2017-12-27 14:41 | PCM.PYCHPN ---
Psychiatric Progress Note - Psychiatric Progress Note Patient seen today, length of contact: pt evaluated discussed with team chart reviewed Patient Chief Complaint: I feel good on current medicine Problems Identified/Issues Discussed: pt evaluated with treatment team ,reported better mood, speech more productive and thought process more goal directed ,no reported changes in sleep or appetite , reported clearing off of the auditory hallucinations , concrete thought process, no reported side effects of medications , planning to stay with on discharge ,denied any current thoughts of self harm, Medical Problems: about five inpatient hospitalizations past two years, history of non compliance DSM 5 Symptoms Update: schizophrenia Medication Change: No Medical Record Reviewed: Yes Mental Status Examination - Cognitive Function Orientation: Person, Place, Situation, Time Memory: Intact Attention: WNL Concentration: WNL Association: WNL Fund of Knowledge: Poor Decription of patient's judgement and insights: partial insight poor judgment - Mood Mood: Neutral - Affect Affect: Constricted - Speech Speech: Soft - Formal Thought Process Formal Thought Process: Circumstantial Psychotic Thoughts and Behaviors: pt denied any current psychotic symptoms, non elicited - Suicidal Ideation Suicidal Ideation: No - Homicidal Ideation Homicidal Ideation: No Goal/Treatment Plan - Goal/Treatment Plan Need for Continued Stay: Severe depression anxiety, Discharge may exacerbated symptoms, Failed transitioning, Severe functional impairment Progress Toward Problem(s) and Goals/Treatment Plan: zoloft 25mg, risperidone 3mg qhs and cogentin 0.5mg qhs trazodne 50mg qhs for insomnia CBT group and supportive therapy Estimated Date of D/C: 12/29/17
[2017-12-27] MEDS ORDERED: Influenza Vaccine (5 YR UP)/PF 60 MCG/0.5 ML SYR IM ONE (17:34)
[2017-12-28 09:10] VITALS: BP 116/67; PULSE 71; RESP 18; TEMP 98.1
--- NOTE | 2017-12-28 15:41 | PCM.PYCHDC ---
Mental Status Examination - Mental Status Examination Orientation: Person, Place Memory: Intact Mood: Neutral Affect: Broad Speech: Appropriate Attention: WNL Concentration: WNL Association: WNL Fund of Knowledge: WN Formal Thought Process: Circumstantial Description of patient's judgement and insight: partial insight poor judgment Psychotic Thoughts and Behaviors: pt denied any current psychotic symptoms, non elicited Suicidal Ideation: No Current Homicidal Ideation?: No Discharge Summary - Discharge Note Reason for Hospitalization: pt requested help pt is a 42 ys old female reported has been diagnosed with schizophrenia two years ago, since then had about five psychiatric hospitalizations, pt has often been non compliant with medications or follow up , p[[t related that to lack of insurance and financial difficulties, she stated she has been homeless and moving between different shelters, pt indicated that she has lost touch with her and her three children has been increasingly depressed for past few weeks due to her living situation and for past week she started experiencing auditory hallucinations at times they are the holy spirit telling her to be good and other times putting her down, pt has been feeling increasingly distressed because of the auditory hallucinations, started having passive suicidal ideation, came to ER seeking help collateral information CW received a call back from Mr. Elena stating that he hear CW message and he would like to know where his spouse had been, and where she is presently is at this time. As per Mr. Elena patient left him a few months ago and never returned. She was living with him and his mother. Consultations:: List each consultation separately and include: 1. Reason for request. 2. Findings. 3. Follow-up Summary of Hospital Course include:: 1. Description of specific treatment plan utilized for patients during their course of treatmen. 2. Summarize the time- course for resolution of acute symptoms and/or regressed behaviors. 3. Describe issues identified and worked on during hospitalization. 4. Describe medication utilized. 5. Describe medical problems identified and treated. 6. Reassessment of suicide risk Summary of Hospital Course: pt on admission was started on risperidone and zoloft , risperidone was increased to 3mg , pt was compliant with treatment denied any side effects pt attended groups, participated in treatment , marriage and family social worker contacted for after discharge plan CBT supportive and group therapy was provided on discharge mental status was stable, pt denied suicidal or homicidal ideation denied perceptual disturbances - Diagnosis (1) Depression Current Visit: Yes Status: Acute - Final Diagnosis (DSM 5) Condition upon Discharge: STABLE DSM 5: schizophrenia undifferentiated type Disposition: HOME/ ROUTINE Follow-up Treatment Plan: zoloft 25mg, risperidone 3mg qhs and cogentin 0.5mg qhs trazodne 50mg qhs for insomnia CBT group and supportive therapy Prescriptions/Medication Reconciliation: Benztropine [Cogentin] 0.5 mg PO HS 30 Days #30 tab risperiDONE [RisperDAL Tab] 3 mg PO HS 30 Days #30 tab Sertraline [Zoloft] 25 mg PO DAILY 30 Days #30 tab traZODone [Desyrel] 50 mg PO HS PRN 30 Days #30 tab PRN Reason: Insomnia - Antipsychotic Medications Pt discharged on 2 or more routine antipsychotic medications: No
== END 2017-12-28 16:45 | disposition home or self-care (01) | DRG 885 ==
LOC: H.ER 05:36 → H.ERHOLD 11:53 → H.PSYCH 13:59
PROVIDERS: ADMIT Psychiatry & Neurology Psychiatry; ATTEND Psychiatry & Neurology Psychiatry
PROC: GZHZZZZ Group Psychotherapy (ICD-10-PCS; principal; 2017-12-18)
PROC: GZ58ZZZ Individual Psychotherapy, Cognitive-Behavioral (ICD-10-PCS; 2017-12-18)
PROC: GZ56ZZZ Individual Psychotherapy, Supportive (ICD-10-PCS; 2017-12-18)
PROC: 3E02340 Introduction of Influenza Vaccine into Muscle, Percutaneous Approach (ICD-10-PCS; 2017-12-27)
DX: F20.3 Undifferentiated schizophrenia (principal); R45.851 Suicidal ideations; F32.9 Major depressive disorder, single episode, unspecified; G47.00 Insomnia, unspecified; Z91.14 Patient's other noncompliance with medication regimen; Z91.19 Patient's noncompliance with other medical treatment and regimen; Z88.0 Allergy status to penicillin; Z23 Encounter for immunization; Z59.0 Homelessness

== ENCOUNTER 2018-01-26 14:09 | Emergency (ER) | payer MEDICAID, OTHER ==
[2018-01-26 14:21] VITALS: BP 114/70; PULSE 81; RESP 18; TEMP 98.6; O2SAT 100
--- NOTE | 2018-01-26 14:35 | ED PDOC ---
HPI: CCC, URI, Sore Throat Time Seen by Provider: 01/26/18 14:26 Chief Complaint (Nursing): ENT Problem Chief Complaint (Provider): sore throat, cough History Per: Patient Onset/Duration Of Symptoms: Days (2x) Current Symptoms Are (Timing): Still Present Additional Complaint(s): 42 year old female with no pertinent past medical history presents to the ED with complaints of a sore throat that started yesterday. Patient reports having associated symptoms of a tactile fever and a cough productive of green sputum. Patient states she is tolerating PO of food and liquids with pain. PMD: [place] ([place]) Past Medical History Reviewed: Historical Data, Nursing Documentation, Vital Signs Vital Signs: Last Vital Signs Temp 98.6 F 01/26/18 14:18 Pulse 81 01/26/18 14:18 Resp 18 01/26/18 14:18 BP 114/70 01/26/18 14:18 Pulse Ox 100 01/26/18 14:18 - Medical History PMH: Depression - Surgical History Surgical History: Cholecystectomy - Family History Family History: States: No Known Family Hx - Living Arrangements Living Arrangements: With Family - Social History Current smoker - smoking cessation education provided: No Alcohol: None Drugs: Denies - Home Medications Home Medications: Ambulatory Orders Medication Instructions Recorded Benztropine [Cogentin] 0.5 mg PO HS 30 Days #30 tab 12/28/17 Sertraline [Zoloft] 25 mg PO DAILY 30 Days #30 tab 12/28/17 risperiDONE [RisperDAL Tab] 3 mg PO HS 30 Days #30 tab 12/28/17 traZODone [Desyrel] 50 mg PO HS PRN 30 Days #30 tab 12/28/17 Azithromycin [Zithromax] 250 mg PO DAILY #6 tab 01/26/18 Benzonatate 200 mg PO TID PRN #20 capsule 01/26/18 Ibuprofen [Motrin] 600 mg PO Q6 PRN #15 tab 01/26/18 - Allergies Allergies/Adverse Reactions: Allergies Allergy/AdvReac Type Severity Reaction Status Date / Time Penicillins Allergy RASH Verified 01/26/18 14:18 Review of Systems ROS Statement: Except As Marked, All Systems Reviewed And Found Negative Constitutional: Positive for: Fever (tactile) ENT: Positive for: Throat Pain Cardiovascular: Negative for: Chest Pain Respiratory: Positive for: Cough, Sputum (green) Gastrointestinal: Negative for: Nausea Genitourinary Female: Negative for: Dysuria Neurological: Negative for: Headache, Dizziness Physical Exam - Reviewed Nursing Documentation Reviewed: Yes Vital Signs Reviewed: Yes - Physical Exam Appears: Positive for: Well, Non-toxic, No Acute Distress Head Exam: Positive for: ATRAUMATIC, NORMOCEPHALIC Skin: Positive for: Normal Color Eye Exam: Positive for: Normal appearance ENT: Positive for: Tonsillar Exudate (bilaterally), Tonsillar Swelling (and erythema bilaterally). Negative for: Other (peritonsillar abscess) Cardiovascular/Chest: Positive for: Regular Rate, Rhythm Respiratory: Positive for: Normal Breath Sounds. Negative for: Wheezing, Respiratory Distress Extremity: Positive for: Normal ROM Lymphatic: Positive for: Adenopathy (bilateral anterior cervical lymphadenopathy) Neurologic/Psych: Positive for: Alert, Oriented (3x) - Laboratory Results Urine POC: Negative - ECG O2 Sat by Pulse Oximetry: 100 (RA) Pulse Ox Interpretation: Normal Medical Decision Making Medical Decision Makin:26 Initial impression: 42 year old female with URI symptoms Initial plan: * throat culture * upreg * motrin 600 mg PO * reevaluation Patient will be discharged home with a prescription for zithromax, motrin and tessalon perlkodi, Scribe Attestation: Documented by Tabitha Zimmerman, acting as a scribe for Julia Calvillo PA-C. Provider Scribe Attestation: All medical record entries made by the Scribe were at my direction and personally dictated by me. I have reviewed the chart and agree that the record accurately reflects my personal performance of the history, physical exam, medical decision making, and the department course for this patient. I have also personally directed, reviewed, and agree with the discharge instructions and disposition. Disposition - Clinical Impression Clinical Impression: Tonsillitis, URI (upper respiratory infection) - Patient ED Disposition Is Patient to be Admitted: No Counseled Patient/Family Regarding: Studies Performed, Diagnosis, Need For Followup, Rx Given - Disposition Referrals: [facility] [Outside] Disposition: Routine/Home Disposition Time: 14:54 Condition: STABLE Additional Instructions: Take prescription meds as directed. Rest and drink plenty fluids. Follow-up with primary doctor or clinic in 2-3 days. Prescriptions: Azithromycin [Zithromax] 250 mg PO DAILY #6 tab Benzonatate 200 mg PO TID PRN #20 capsule PRN Reason: Cough Ibuprofen [Motrin] 600 mg PO Q6 PRN #15 tab PRN Reason: Pain, Moderate (4-7) Instructions: Bacterial Upper Respiratory Infection, Adult, Sore Throat, Adult (DC) Forms: [facility] (Kazakh) Print Language: URUGUAYAN
== END 2018-01-26 15:12 | disposition home or self-care (01) ==
LOC: H.ER 14:09
DX: J03.90 Acute tonsillitis, unspecified (principal); Z88.0 Allergy status to penicillin

== ENCOUNTER 2018-03-11 15:55 | Emergency (ER) | payer MEDICAID, OTHER, SELFPAY ==
[2018-03-11 16:00] VITALS: O2SAT 100
--- NOTE | 2018-03-11 17:01 | ED PDOC ---
History of Present Illness History of Present Illness: 42yo female, with history of anxiety, comes to ER reporting flu like symptoms for the past 3 days. She reports a productive cough, nasal congestion, and difficulty breathing through her nose. She also has rhinorrhea, sore throat and had nausea today. Patient denies any hemoptysis, vomiting, diarrhea; patient does report loose stools as well. She has subjective fever, chills and diffuse bodyaches; patient has not taken any medications as she was concerned about possible interaction with her Zoloft. Patient is homeless and states she had sick contacts while at the [facility]. PMD: [facility] HPI: Influenza Time Seen by Provider: 03/11/18 16:20 Chief Complaint: Flu-like Symptoms Chief Complaint (Provider): Cough, bodyaches History Per: Patient Exam Limitations: no limitations Have you had recent travel within the past 21 days to any of: No Onset/Duration Of Symptoms: Days Symptoms include: bodyaches, sore throat, cough, nasal congestion, difficulty breathing Past Medical History Reviewed: Historical Data, Nursing Documentation, Vital Signs Vital Signs: Last Vital Signs Temp 98.1 F 03/11/18 15:59 Pulse 85 03/11/18 15:59 Resp 16 03/11/18 15:59 BP 129/84 03/11/18 15:59 Pulse Ox 100 03/11/18 15:59 - Medical History PMH: Depression Denies: Diabetes, Hepatitis, HIV, HTN, Chronic Kidney Disease, Seizures, Sexually Transmitted Disease - Surgical History Surgical History: Cholecystectomy - Family History Family History: States: No Known Family Hx - Living Arrangements Living Arrangements: Other (homeless [facility]) - Social History Current smoker - smoking cessation education provided: No Alcohol: None Drugs: Denies - Home Medications Home Medications: Ambulatory Orders Medication Instructions Recorded Benztropine [Cogentin] 0.5 mg PO HS 30 Days #30 tab 12/28/17 Sertraline [Zoloft] 25 mg PO DAILY 30 Days #30 tab 12/28/17 risperiDONE [RisperDAL Tab] 3 mg PO HS 30 Days #30 tab 12/28/17 traZODone [Desyrel] 50 mg PO HS PRN 30 Days #30 tab 12/28/17 Azithromycin [Zithromax] 250 mg PO DAILY #6 tab 01/26/18 Benzonatate 200 mg PO TID PRN #20 capsule 01/26/18 Ibuprofen [Motrin] 600 mg PO Q6 PRN #15 tab 01/26/18 Acetaminophen [Tylenol Extra 1,000 mg PO Q6 PRN #30 tablet 03/11/18 Strength] Ibuprofen [Motrin Tab] 600 mg PO Q8 PRN #30 tab 03/11/18 Oseltamivir Cap [Tamiflu] 75 mg PO BID #10 cap 03/11/18 Oxymetazoline 0.05% [Oxymetazoline 1 spray NS PRN PRN #1 bottle 03/11/18 HCl 30 Ml] - Allergies Allergies/Adverse Reactions: Allergies Allergy/AdvReac Type Severity Reaction Status Date / Time Penicillins Allergy RASH Verified 01/26/18 14:18 Review of Systems ROS Statement: Except As Marked, All Systems Reviewed And Found Negative (per HPI) Constitutional: Positive for: Fever, Chills, Malaise ENT: Positive for: Nose Congestion Respiratory: Positive for: Cough, Sputum, Other (difficulty breathing through nose). Negative for: Hemoptysis Physical Exam - Reviewed Nursing Documentation Reviewed: Yes Vital Signs Reviewed: Yes - Physical Exam Appears: Positive for: Non-toxic (tired appearing), No Acute Distress Head Exam: Positive for: ATRAUMATIC, NORMAL INSPECTION, NORMOCEPHALIC Skin: Positive for: Warm, Dry Eye Exam: Positive for: EOMI, PERRL ENT: Positive for: Nasal Congestion (boggy and erythematous nasal turbinates bilaterally), Pharyngeal Erythema, Other (moist mucus membranes). Negative for: Tonsillar Exudate, Tonsillar Swelling Neck: Positive for: Painless ROM, Supple Cardiovascular/Chest: Positive for: Regular Rate, Rhythm, Chest Non Tender. Negative for: Murmur Respiratory: Positive for: Normal Breath Sounds. Negative for: Accessory Muscle Use, Rales, Rhonchi, Wheezing, Respiratory Distress Gastrointestinal/Abdominal: Positive for: Soft. Negative for: Tenderness Back: Positive for: Normal Inspection. Negative for: Muscle Spasm Extremity: Positive for: Normal ROM. Negative for: Deformity Lymphatic: Negative for: Adenopathy Neurologic/Psych: Positive for: Alert. Negative for: Motor/Sensory Deficits Medical Decision Making Medical Decision Making: Impression: 42yo female with flu like illness Differential: Including but not limited to pneumonia Plan: -- CXR -- Tamiflu 75ml PO -- Toradol 30mg IM -- Tylenol 975mg PO __ Scribe Attestation: Documented by Tereza Kline, acting as a scribe for Julia Graves MD. Provider Scribe Attestation: All medical record entries made by the Scribe were at my direction and personally dictated by me. I have reviewed the chart and agree that the record accurately reflects my personal performance of the history, physical exam, medical decision making, and the department course for this patient. I have also personally directed, reviewed, and agree with the discharge instructions and disposition. - ECG O2 Sat by Pulse Oximetry: 100 Disposition - Clinical Impression Clinical Impression: Influenza-like symptoms Counseled Patient/Family Regarding: Studies Performed, Diagnosis, Need For Followup, Rx Given - Disposition [facility]errals: [facility]Outside] Disposition: Routine/Home Disposition Time: 17:50 Condition: STABLE Prescriptions: Acetaminophen [Tylenol Extra Strength] 1,000 mg PO Q6 PRN #30 tablet PRN Reason: FEVER OR PAIN Ibuprofen [Motrin Tab] 600 mg PO Q8 PRN #30 tab PRN Reason: Pain, Moderate (4-7) Oseltamivir Cap [Tamiflu] 75 mg PO BID #10 cap Oxymetazoline 0.05% [Oxymetazoline HCl 30 Ml] 1 spray NS PRN PRN #1 bottle PRN Reason: nasal congestion Instructions: Viral Syndrome (DC), Viral Upper Respiratory Infection, Adult (DC) Forms: [facility] (Slovenian)
[2018-03-11 18:17] VITALS: BP 121/72; PULSE 70; RESP 18; TEMP 98.8
--- NOTE | 2018-03-11 19:07 | RAD ---
Date of service: 03/11/2018 HISTORY: SOB cough COMPARISON: Comparison made with prior study 09/08/2017 TECHNIQUE: Chest PA and lateral FINDINGS: LUNGS: Poor inspiration with low lung volumes, crowded bronchovascular markings and mild bibasilar atelectasis. PLEURA: No significant pleural effusion identified. No pneumothorax apparent. CARDIOVASCULAR: No aortic atherosclerotic calcification present. Normal cardiac size. No pulmonary vascular congestion. OSSEOUS STRUCTURES: No significant abnormalities. VISUALIZED UPPER ABDOMEN: Normal. OTHER FINDINGS: None. IMPRESSION: Poor inspiration with low lung volumes, crowded bronchovascular markings and mild bibasilar atelectasis.
== END 2018-03-11 18:17 | disposition home or self-care (01) ==
LOC: SUPCPDRO 15:55 → H.ER 15:55
DX: J11.1 Influenza due to unidentified influenza virus with other respiratory manifestations (principal); Z59.0 Homelessness; Z88.0 Allergy status to penicillin
CPT/HCPCS: 71046; 81025; 96372; 99283; J1885